=== PATIENT | male | born 1980 | race Caucasian/White ===

== ENCOUNTER 2017-08-21 17:04 | Emergency (ER) | payer BC ==
[2017-08-21 17:23] VITALS: BP 135/84
--- NOTE | 2017-08-21 17:26 | UC ---
Elbow Pain - HPI Summary HPI Summary: Pt presents with left elbow "tingling" going up to his left shoulder and into his left chest for the last 2-3 weeks. 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 He also suffers from anxiety, for which he takes xanax prn. He has not taken anything OTC for this. Denies injury, fever, chills , cough, SOB, chest pain, abdominal pain, n/v/d/c. - History of Current Complaint Chief Complaint: UCCardiac Stated Complaint: LEFT SIDE TINGLY SENSATION Hx Obtained From: Patient Pain Intensity: 0 - Allergies/Home Medications Allergies/Adverse Reactions: Allergies Allergy/AdvReac Type Severity Reaction Status Date / Time No Known Allergies Allergy Verified 01/28/15 14:08 Home Medications: Home Medications ALPRAZolam TAB* [Xanax TAB*] 0.25 mg PO ONCE PRN 08/21/17 [History Confirmed ] PMH/Surg Hx/FS Hx/Imm Hx - Additional Past Medical History Additional PMH: Anxiety Previously Healthy: Yes - Surgical History Surgical History: None - Family History Known Family History: Positive: None - Social History Occupation: Employed Full-time Lives: With Family Alcohol Use: None Substance Use Type: Excessive Caffeine Substance Use Comment - Amount & Last Used: drinks a lot of mountain dew Smoking Status (MU): Former Smoker Type: Smokeless Tobacco Review of Systems Constitutional: Negative Skin: Negative Eyes: Negative ENT: Negative Respiratory: Negative Cardiovascular: Negative Gastrointestinal: Negative Motor: Negative Neurovascular: Negative Musculoskeletal: Negative Neurological: Other - Tingling left arm Psychological: Anxious All Other Systems Reviewed And Are Negative: Yes Physical Exam - Summary Physical Exam Summary: GENERAL: NAD. WDWN. No pain distress. SKIN: No rashes, sores, ulcers, masses, lesions. NECK: FROM. Nontender. No lymphadenopathy. CHEST: CTAB. No r/r/w. No accessory muscle use. Breathing comfortably and in no distress. CV: RRR. Without m/r/g. Pulses intact radial and ulnar. MSK: Left shoulder: FROM. Strength 5/5. No edema or obvious bony deformities. Negative apleys, apprehension, empty can, aegle-daysi, neer, heredia, and yergason tests. NEURO: Alert. Sensations intact left UE C4-T1. PSYCH: Age appropriate behavior. Triage Information Reviewed: Yes Vital Signs: Initial Vital Signs Temp 98.3 F 08/21/17 17:11 Pulse 74 08/21/17 17:11 Resp 16 08/21/17 17:11 BP 135/84 08/21/17 17:11 Pulse Ox 100 08/21/17 17:11 Elbow Pain Course/Dx - Course Course Of Treatment: EKG NSR [address] changes as read by Dr. Simeon. I suspect his "tingling" is MSK or anxiety related, but advised him to seek further evaluation in the ER for a more appropriate workup. - Differential Dx/Diagnosis Provider Diagnoses: Left arm "tingling" Discharge - Sign-Out/Discharge Documenting (check all that apply): Discharge - Discharge Plan Condition: Stable Disposition: HOME Referrals: CHRISTOPHER Franco [Primary Care Provider] - Additional Instructions: Please go to the ER for further evaluation and workup of your chest pain - Billing Disposition and Condition Condition: STABLE Disposition: HOME
== END 2017-08-21 17:42 | disposition home or self-care (01) ==
LOC: UCCORT 17:04
DX: R20.2 Paresthesia of skin (principal); Z87.891 Personal history of nicotine dependence
CPT/HCPCS: 93005; 99212; G0463